=== PATIENT | female | born 1965 | race African-American/Black ===

== ENCOUNTER 2016-10-14 10:38 | Emergency (ER) | payer BC ==
[2016-10-14 10:44] VITALS: BP 156/94; PULSE 75; TEMP 98.1; BMI 29.7
--- NOTE | 2016-10-14 11:18 | PDOC ---
History of Present Illness - General Chief Complaint: Pain Stated Complaint: RT LEG PAIN Time Seen by Provider: 10/14/16 11:10 History Source: Patient Exam Limitations: No Limitations - History of Present Illness Initial Comments: 10/14/16 11:16 50 yr female with c/o right lower leg pain for one week. Pt denies trauma, pt states pain worse with standing and walking. Pt has history of PE in the past, many years ago. Pt is not on any blood thinners.Pt denies chest pain no SOB. Pt also c/o feeling week and nauseas. no abd pain no fever or chills denies urianry complaints. 10/14/16 11:22 Past History - Past Medical History Allergies/Adverse Reactions: Allergies Allergy/AdvReac Type Severity Reaction Status Date / Time No Known Allergies Allergy Verified 10/14/16 10:40 Home Medications: Ambulatory Orders Aspirin [ASA -] 81 mg PO DAILY 04/15/15 Lovastatin 10 mg PO DAILY 04/15/15 Methocarbamol [Robaxin -] 500 mg PO TID PRN #30 tablet 04/15/15 Metoprolol Tartrate 25 mg PO DAILY 04/15/15 Paroxetine HCl [Paxil] 20 mg PO DAILY 04/15/15 Trazodone HCl [Desyrel -] 50 mg PO HS 04/15/15 Valsartan/Hydrochlorothiazide [Valsartan-Hctz 320-25 mg Tab] 1 each PO DAILY Azithromycin [Zithromax Tri-Hero (3 DAYS) -] 500 mg PO DAILY #3 tablet 12/04/15 Prednisone [Deltasone -] 40 mg PO DAILY #8 tablet 12/04/15 Naproxen [Naprosyn -] 500 mg PO BID #14 tablet 10/14/16 Asthma: Yes (MILD ASTHMA) Cardiac Disorders: No CHF: No Diabetes: No GI Disorders: Yes (GERD) Disorders: No HTN: Yes Hypercholesterolemia: Yes Liver Disease: No Psychiatric Problems: Yes (depression/anxiety) Suicide Attempt (Hx): No Thyroid Disease: No - Surgical History Abdominal Surgery: Yes - Immunization History Td Vaccination: Yes Immunization Up to Date: Yes - Psycho/Social/Smoking Cessation Hx Anxiety: Yes Suicidal Ideation: No Smoking Status: Yes Smoking History: Current some day smoker Have you smoked in the past 12 months: Yes Number of Cigarettes Smoked Daily: 7 Information on smoking cessation initiated: No 'Breaking Loose' booklet given: 02/25/12 Hx Alcohol Use: No Drug/Substance Use Hx: No Substance Use Type: None Hx Substance Use Treatment: No *Physical Exam - Vital Signs Last Vital Signs Temp Pulse Resp BP Pulse Ox 98.1 F 75 18 156/94 98 10/14/16 10:40 10/14/16 10:40 10/14/16 10:40 10/14/16 10:40 10/14/16 10:40 - Physical Exam General Appearance: Yes: Nourished HEENT: positive: EOMI, ROS, Normal ENT Inspection, TMs Normal, Pharynx Normal Neck: positive: Supple Respiratory/Chest: positive: Lungs Clear, Normal Breath Sounds Cardiovascular: positive: Regular Rhythm, Regular Rate Gastrointestinal/Abdominal: positive: Normal Bowel Sounds, Soft. negative: Tender Musculoskeletal: positive: Normal Inspection Extremity: positive: Normal Capillary Refill, Normal Inspection, Normal Range of Motion. negative: Tender, Swelling, Calf Tenderness Integumentary: positive: Normal Color, Dry, Warm Neurologic: positive: Fully Oriented, Alert, Normal Mood/Affect, Normal Response , Motor Strength / ED Treatment Course - LABORATORY CBC & Chemistry Diagram: 10/14/16 10:57 10/14/16 10:57 - RADIOLOGY Radiology Studies Ordered: Category Date Time Status DUPLEX VASCUL US-1 LEG [US] Stat Ultrasound 10/14/16 11:15 Ordered Medical Decision Making - Medical Decision Making 10/14/16 11:24 cc: right leg pain for 1 week worse with walking and standing no fever no chills, no abd pain will r/o DVT will check labs toradol for pain 10/14/16 12:36 labs are WNL *DC/Admit/Observation/Transfer Diagnosis at time of Disposition: Leg pain, right - Discharge Dispostion Disposition: HOME Condition at time of disposition: Good - Prescriptions Prescriptions: Naproxen [Naprosyn -] 500 mg PO BID #14 tablet - Patient Instructions Additional Instructions: take naprosyn for pain as directed please follow with your doctor in 2-3 days for follow up please bring copies of the blood work done today and the ultrasound report
[2016-10-14 11:42] LABS: BASOPHIL 0.7 % (0-2.0); EOSINOPHIL 4.2 % (0-4.5); MCH 30.4 pg (25.7-33.7); MCHC 33.2 g/dl (32.0-36.0); MEAN CELL VOLUME 91.8 fl (80-96); MEAN PLT VOLUME 8.6 fl (7.5-11.1); NEUTROPHILS 71.7 % (42.8-82.8); PLATELET COUNT 265 K/MM3 (134-434); RDW 13.6 % (11.6-15.6); WHITE BLOOD COUNT 13.5 K/mm3 (4.0-10.0)
[2016-10-14 11:54] LABS: INR 0.96 (0.82-1.09); PROTHROMBIN TIME (PATIENT) 10.5 SEC (9.98-11.88)
[2016-10-14] MEDS ORDERED: KETOROLAC TROMETHAMINE 60 MG/2 ML VIAL IM ONE (12:01)
[2016-10-14] MEDS ORDERED: KETOROLAC TROMETHAMINE 60 MG/2 ML VIAL ONE (12:03)
[2016-10-14 12:07] LABS: ALBUMIN 3.5 g/dl (3.4-5.0); ALK PHOS 73 U/L (45-117); ANION GAP 9 (8-16); BILIRUBIN,TOTAL 0.2 mg/dL (0.2-1.0); CALCIUM 8.8 mg/dL (8.5-10.1); CO2 26 mmol/L (21-32); CREATININE 0.8 mg/dL (0.55-1.02); GLUCOSE,RANDOM 93 mg/dL (74-106); SGPT/ALT 19 U/L (12-78)
[2016-10-14 12:08] LABS: SGOT/AST 13 U/L (15-37)
[2016-10-14 12:33] LABS: URINE APPEARANCE SLCLOUDY; URINE BILIRUBIN NEGATIVE (NEGATIVE); URINE BLOOD 1+ (NEGATIVE); URINE COLOR AMBER; URINE GLUCOSE (UA) NEGATIVE (NEGATIVE); URINE KETONE NEGATIVE (NEGATIVE); URINE LEUK ESTERASE TRACE (NEGATIVE); URINE NITRITE NEGATIVE (NEGATIVE); URINE PROTEIN NEGATIVE (NEGATIVE); URINE UROBILINOGEN NEGATIVE mg/dL (0.2-1.0)
[2016-10-14 12:36] LABS: URINE MUCUS RARE; URINE RBC 12 /hpf (0-3); URINE WBC 1 /hpf (3-5)
== END 2016-10-14 12:44 | disposition home or self-care (01) ==
LOC: JERFT 10:38
PROC: 3E0233Z Introduction of Anti-inflammatory into Muscle, Percutaneous Approach (ICD-10-PCS; principal; 2016-10-14)
DX: M79.604 Pain in right leg (principal); I10 Essential (primary) hypertension; E78.00 Pure hypercholesterolemia, unspecified; F41.8 Other specified anxiety disorders; Z86.711 Personal history of pulmonary embolism
CPT/HCPCS: 36415; 80053; 81003; 81015; 84703; 85025; 85610; 93971-TC; 99281-25

== ENCOUNTER 2016-10-14 21:53 | Emergency (ER) | payer BC ==
[2016-10-14 22:28] VITALS: BP 151/94; PULSE 66; TEMP 98.9; BMI 31.9
--- NOTE | 2016-10-14 22:45 | PDOC ---
History of Present Illness - History of Present Illness Initial Comments: 10/14/16 23:10 The patient is a 50 year old female, with a significant past medical history of hypertension, hyperlipidemia, anxiety/depression, GERD, asthma, who presents to the emergency department with right sided abdominal pain, nausea, and vomiting since 6PM tonight. She states she was seen in the ED this morning for leg pain. She states she was given a shot for pain and when the pain resolved she was discharged home. She reports going home around 1PM, eating at 4PM, and developing a sudden onset of emesis at 6PM. She reports 2 episodes of nonbilious /nonbloody emesis - mostly the food that she ate. She localizes her pain to the right side of her abdomen and denies radiation of pain. Reports similar pain in the past, but less mild and not after eating. She denies chest pain, shortness of breath, headache and dizziness. She denies fever, chills, diarrhea and constipation. She denies dysuria, frequency, urgency and hematuria. Allergies: NKDA Past surgical history: partial hysterectomy (20 years ago), D&C (+20 years ago) Social history: Pt reports daily tobacco use. Pt denies alcohol use or illicit drug use PCP - Dr. Lexx Alanis <Lynda Reyna - Last Filed: 10/14/16 23:10> <Delon Alcaraz - Last Filed: 10/19/16 07:50> - General Chief Complaint: Pain Stated Complaint: PAIN Time Seen by Provider: 10/14/16 22:44 Past History <Lynda Reyna - Last Filed: 10/14/16 23:10> - Past Medical History Asthma: Yes (MILD ASTHMA) Cardiac Disorders: No CHF: No Diabetes: No GI Disorders: Yes (GERD) Disorders: No HTN: Yes Hypercholesterolemia: Yes Liver Disease: No Psychiatric Problems: Yes (depression/anxiety) Suicide Attempt (Hx): No Thyroid Disease: No - Surgical History Abdominal Surgery: Yes - Immunization History Td Vaccination: Yes Immunization Up to Date: Yes - Psycho/Social/Smoking Cessation Hx Anxiety: Yes Suicidal Ideation: No Smoking Status: Yes Smoking History: Unknown if ever smoked Have you smoked in the past 12 months: Yes Number of Cigarettes Smoked Daily: 7 Information on smoking cessation initiated: No 'Breaking Loose' booklet given: 02/25/12 Hx Alcohol Use: No Drug/Substance Use Hx: No Substance Use Type: None Hx Substance Use Treatment: No <Delon Alcaraz - Last Filed: 10/19/16 07:50> - Past Medical History Allergies/Adverse Reactions: Allergies Allergy/AdvReac Type Severity Reaction Status Date / Time No Known Allergies Allergy Verified 10/14/16 22:26 Home Medications: Ambulatory Orders Aspirin [ASA -] 81 mg PO DAILY 04/15/15 Lovastatin 10 mg PO DAILY 04/15/15 Methocarbamol [Robaxin -] 500 mg PO TID PRN #30 tablet 04/15/15 Metoprolol Tartrate 25 mg PO DAILY 04/15/15 Paroxetine HCl [Paxil] 20 mg PO DAILY 04/15/15 Trazodone HCl [Desyrel -] 50 mg PO HS 04/15/15 Valsartan/Hydrochlorothiazide [Valsartan-Hctz 320-25 mg Tab] 1 each PO DAILY Azithromycin [Zithromax Tri-Hero (3 DAYS) -] 500 mg PO DAILY #3 tablet 12/04/15 Prednisone [Deltasone -] 40 mg PO DAILY #8 tablet 12/04/15 Naproxen [Naprosyn -] 500 mg PO BID #14 tablet 10/14/16 Review of Systems - Review of Systems Able to Perform ROS?: Yes Comments:: 10/14/16 23:11 GENERAL/CONSTITUTIONAL: No fever or chills. No weakness. HEAD, EYES, EARS, NOSE AND THROAT: No change in vision. No ear pain or discharge. No sore throat. CARDIOVASCULAR: No chest pain or shortness of breath. RESPIRATORY: No cough, wheezing, or hemoptysis. GASTROINTESTINAL: (+) right sided abdominal pain, nausea, and vomiting.No diarrhea or constipation. GENITOURINARY: No dysuria, frequency, or change in urination. MUSCULOSKELETAL: No joint or muscle swelling or pain. No neck or back pain. SKIN: No rash NEUROLOGIC: No headache, vertigo, loss of consciousness, or change in strength/ sensation. ENDOCRINE: No increased thirst. No abnormal weight change. HEMATOLOGIC/LYMPHATIC: No anemia, easy bleeding, or history of blood clots. ALLERGIC/IMMUNOLOGIC: No hives or skin allergy. <Lynda Reyna - Last Filed: 10/14/16 23:10> *Physical Exam - Vital Signs Last Vital Signs Temp Pulse Resp BP Pulse Ox 98.9 F 66 14 151/94 99 10/14/16 22:27 10/14/16 22:27 10/14/16 22:27 10/14/16 22:27 10/14/16 22:27 - Physical Exam Comments: 10/14/16 23:11 GENERAL: Awake, alert, and fully oriented, in no acute distress HEAD: No signs of trauma EYES: PERRLA, EOMI, sclera anicteric, conjunctiva clear ENT: Auricles normal inspection, hearing grossly normal, nares patent, oropharynx clear without exudates. Moist mucosa NECK: Normal ROM, supple, no lymphadenopathy, JVD, or masses LUNGS: Breath sounds equal, clear to auscultation bilaterally. No wheezes, and no crackles HEART: Regular rate and rhythm, normal S1 and S2, no murmurs, rubs or gallops ABDOMEN: (+) RUQ tenderness to palpation. Soft, normoactive bowel sounds. No guarding, no rebound. No masses EXTREMITIES: Normal range of motion, no edema. No clubbing or cyanosis. No cords, erythema, or tenderness NEUROLOGICAL: Normal speech, cranial nerves intact, negative pronator drift, 5/ 5 strength in all 4 extremities, normal sensation to light touch in all 4 extremities, normal cerebellar exam, normal gait, normal reflexes and tone SKIN: Warm, Dry, normal turgor, no rashes or lesions noted. <Lynda Reyna - Last Filed: 10/14/16 23:10> - Vital Signs Last Vital Signs Temp Pulse Resp BP Pulse Ox 98.9 F 66 14 151/94 99 10/14/16 22:27 10/14/16 22:27 10/14/16 22:27 10/14/16 22:27 10/14/16 22:27 <Delon Alcaraz - Last Filed: 10/19/16 07:50> ED Treatment Course - LABORATORY CBC & Chemistry Diagram: 10/15/16 00:00 10/15/16 00:00 <Delon Alcaraz - Last Filed: 10/19/16 07:50> Medical Decision Making - Medical Decision Making 10/14/16 23:32 50 year old female, with a significant past medical history of hypertension, hyperlipidemia, anxiety/depression, GERD, asthma, who presents to the emergency department with right sided abdominal pain, nausea, and vomiting since 6PM tonight. Exam with right upper quadrant tenderness to palpation. Differential includes cholecystitis versus pancreatitis versus gastritis. -labs -UA -US -pepcid/zofran -reassess 10/19/16 07:50 <Delon Alcaraz - Last Filed: 10/19/16 07:50> *DC/Admit/Observation/Transfer - Attestations Scribe Attestion: 10/14/16 23:11 Documentation prepared by Lynda Reyna, acting as emergency medical dispatcher for Delon Alcaraz MD <Lynda Reyna - Last Filed: 10/14/16 23:10> <Delon Alcaraz - Last Filed: 10/19/16 07:50> Diagnosis at time of Disposition: Abdominal pain - Discharge Dispostion Disposition: HOME Condition at time of disposition: Stable - Referrals Referrals: Lexx Alanis MD [Primary Care Provider] -
[2016-10-14] MEDS ORDERED: ONDANSETRON 4 MG/2 ML VIAL IVPUSH ONE (23:10)
[2016-10-14] MEDS ORDERED: FAMOTIDINE 20 MG/50 ML IVPB 50 ML IVPB ONE ×2 (23:11→23:54)
[2016-10-14] MEDS ORDERED: ONDANSETRON 4 MG/2 ML VIAL ONE (23:54)
[2016-10-15 00:22] LABS: BASOPHIL 0.6 % (0-2.0); EOSINOPHIL 2.9 % (0-4.5); MCH 30.2 pg (25.7-33.7); MEAN CELL VOLUME 91.5 fl (80-96); MEAN PLT VOLUME 8.4 fl (7.5-11.1); NEUTROPHILS 73.2 % (42.8-82.8); PLATELET COUNT 260 K/MM3 (134-434); RDW 13.3 % (11.6-15.6); WHITE BLOOD COUNT 12.4 K/mm3 (4.0-10.0)
[2016-10-15 00:45] LABS: ALBUMIN 3.6 g/dl (3.4-5.0); ANION GAP 7 (8-16); CALCIUM 8.8 mg/dL (8.5-10.1); CO2 29 mmol/L (21-32); CREATININE 0.8 mg/dL (0.55-1.02); GLUCOSE,RANDOM 102 mg/dL (74-106); MAGNESIUM 2.3 mg/dL (1.8-2.4); SGOT/AST 9 U/L (15-37); SGPT/ALT 20 U/L (12-78)
[2016-10-15 00:49] LABS: ALK PHOS 74 U/L (45-117); BILIRUBIN,TOTAL 0.3 mg/dL (0.2-1.0); TROPONIN I < 0.02 ng/ml (0.00-0.05)
== END 2016-10-15 02:38 | disposition home or self-care (01) ==
LOC: JER 21:53
PROC: 3E033GC Introduction of Other Therapeutic Substance into Peripheral Vein, Percutaneous Approach (ICD-10-PCS; principal; 2016-10-14)
PROC: 3E033GC Introduction of Other Therapeutic Substance into Peripheral Vein, Percutaneous Approach (ICD-10-PCS; 2016-10-14)
DX: R10.84 Generalized abdominal pain (principal); K21.9 Gastro-esophageal reflux disease without esophagitis; I10 Essential (primary) hypertension; E78.00 Pure hypercholesterolemia, unspecified; F41.8 Other specified anxiety disorders
CPT/HCPCS: 36415; 76700-TC; 80053; 83690; 83735; 84484; 85025; 99281-25

== ENCOUNTER 2017-04-28 11:40 | Emergency (ER) | payer BC, OTHER ==
[2017-04-28 12:03] VITALS: BP 118/67; PULSE 67; TEMP 98.8; BMI 32.1
[2017-04-28] MEDS ORDERED: KETOROLAC TROMETHAMINE 60 MG/2 ML VIAL IM ONE (12:43)
--- NOTE | 2017-04-28 12:44 | PDOC ---
History of Present Illness - General Chief Complaint: Pain, Acute Stated Complaint: RT SHOULDER PAIN Time Seen by Provider: 04/28/17 12:24 History Source: Patient Exam Limitations: No Limitations - History of Present Illness Initial Comments: 04/28/17 13:49 Patient is a 51-year-old female who presents with 3 days of right shoulder pain. Patient is right-hand dominant. She states that she woke up this morning with shooting pain. She rates the pain a 10 on a 10. She states that it took her a long time to get dressed this morning. She states that she was unable to take her clothes off her exam now. Denies fevers, chills, numbness and tingling in the extremity, trauma to the arm. Past History - Travel Traveled outside of the country in the last 30 days: No Close contact w/someone who was outside of country & ill: No - Past Medical History Allergies/Adverse Reactions: Allergies Allergy/AdvReac Type Severity Reaction Status Date / Time No Known Allergies Allergy Verified 04/28/17 11:51 Home Medications: Ambulatory Orders Aspirin [ASA -] 81 mg PO DAILY 04/15/15 Lovastatin 10 mg PO DAILY 04/15/15 Methocarbamol [Robaxin -] 500 mg PO TID PRN #30 tablet 04/15/15 Metoprolol Tartrate 25 mg PO DAILY 04/15/15 Paroxetine HCl [Paxil] 20 mg PO DAILY 04/15/15 Valsartan/Hydrochlorothiazide [Valsartan-Hctz 320-25 mg Tab] 1 each PO DAILY traZODone HCL [Desyrel -] 50 mg PO HS 04/15/15 Azithromycin [Zithromax Tri-Hero (3 DAYS) -] 500 mg PO DAILY #3 tablet 12/04/15 predniSONE [Deltasone -] 40 mg PO DAILY #8 tablet 12/04/15 Naproxen [Naprosyn -] 500 mg PO BID #14 tablet 10/14/16 predniSONE [Deltasone -] 40 mg PO DAILY #8 tablet 04/28/17 Asthma: Yes (MILD ASTHMA) Cardiac Disorders: No COPD: No CHF: No DVT: No Diabetes: No GI Disorders: Yes (GERD) Disorders: No HTN: Yes Hypercholesterolemia: Yes Liver Disease: No Psychiatric Problems: Yes (depression/anxiety) Thyroid Disease: No - Surgical History Abdominal Surgery: Yes - Immunization History Td Vaccination: Yes Immunization Up to Date: Yes - Suicide/Smoking/Psychosocial Hx Smoking Status: Yes Smoking History: Unknown if ever smoked Have you smoked in the past 12 months: Yes Number of Cigarettes Smoked Daily: 7 Information on smoking cessation initiated: No 'Breaking Loose' booklet given: 02/25/12 Hx Alcohol Use: No Drug/Substance Use Hx: No Substance Use Type: None Hx Substance Use Treatment: No Review of Systems - Review of Systems Able to Perform ROS?: Yes Comments:: 04/28/17 13:51 CONSTITUTIONAL: Absent: fever, chills, diaphoresis, generalized weakness, malaise, loss of appetite MUSCULOSKELETAL: R shoulder pain x2 Absent: myalgia, arthralgia, joint swelling SKIN: Absent: rash, itching, pallor NEUROLOGIC: Absent: headache, focal weakness or paresthesias, dizziness, unsteady gait, seizure, mental status changes, bladder or bowel incontinence PSYCHIATRIC: Absent: anxiety, depression, suicidal or homicidal ideation, hallucinations. Is the patient limited Malaysian proficient: No *Physical Exam - Vital Signs Last Vital Signs Temp Pulse Resp BP Pulse Ox 98.8 F 67 16 118/67 98 04/28/17 11:51 04/28/17 11:51 04/28/17 11:51 04/28/17 11:51 04/28/17 11:51 - Physical Exam Comments: 04/28/17 13:51 GENERAL: Well developed, well nourished. Awake and alert. No acute distress. NECK: Supple. Full ROM. No JVD. Carotid pulses 2+ and symmetric, without bruits. No thyromegaly. No lymphadenopathy. MUSCULOSKELETAL Decreased ROM of the R shoulder in all directions. TTP of the R humeral head. Normal range of motion at all other joints. No bony deformities or tenderness. No CVA tenderness. EXTREMITIES: No cyanosis. No clubbing. No edema. No calf tenderness. SKIN: Warm and dry. Normal capillary refill. No rashes. No jaundice. NEUROLOGICAL: Alert, awake, appropriate. Cranial nerves 2-12 intact. No deficits to light touch and temperature in face, upper extremities and lower extremities. No motor deficits in the in face, upper extremities and lower extremities. Normoreflexic in the upper and lower extremities. Normal speech. Toes are down- going bilaterally. Gait is normal without ataxia. PSYCHIATRIC: Cooperative. Good eye contact. Appropriate mood and affect. Medical Decision Making - Medical Decision Making 04/28/17 13:59 Patient is a 51-year-old female who presents with right shoulder pain. Patient is right-hand dominant. Decreased ROM of R shoulder on exam. No trauma to suggest reason for shoulder pain. X-ray obtained. X-ray read shows calcification of a ligament in the right shoulder. Most likely the cause of her pain. We'll discharge home with steroids and or so follow-up at this time. Patient states she has an appointment on Thursday at [facility] for orthopedics. Patient reports mild relief of her pain with Toradol. Return precautions given. Patient understands all discharge instructions and all questions were answered. *DC/Admit/Observation/Transfer Diagnosis at time of Disposition: Shoulder pain, right Qualifiers: Chronicity: acute Qualified Code(s): M25.511 - Pain in right shoulder - Discharge Dispostion Disposition: HOME Condition at time of disposition: Stable Admit: No - Prescriptions Prescriptions: predniSONE [Deltasone -] 40 mg PO DAILY #8 tablet - Referrals Referrals: Lexx Alanis MD [Primary Care Provider] - - Patient Instructions Printed Discharge Instructions: DI for Shoulder Pain Additional Instructions: Your x-ray today showed calcifications in your ligament. This is most likely what is causing her pain. Please take the steroids as prescribed for the next 4 days to help with the swelling. Please do gentle range of motion exercises to help the shoulder mobile. You may use heating pads to the area to help with the pain as well. Please keep your appointment with orthopedics on Thursday. Return to the emergency department if you have worsening pain, shortness of breath, cannot move the arm, or have any changes in her symptoms. - Post Discharge Activity
[2017-04-28] MEDS ORDERED: KETOROLAC TROMETHAMINE 60 MG/2 ML VIAL ONE (12:45)
== END 2017-04-28 13:58 | disposition home or self-care (01) ==
LOC: JERFT 11:40
PROC: 3E0233Z Introduction of Anti-inflammatory into Muscle, Percutaneous Approach (ICD-10-PCS; principal; 2017-04-28)
DX: M25.511 Pain in right shoulder (principal); K21.9 Gastro-esophageal reflux disease without esophagitis; I10 Essential (primary) hypertension; E78.00 Pure hypercholesterolemia, unspecified; F41.8 Other specified anxiety disorders; J45.909 Unspecified asthma, uncomplicated
CPT/HCPCS: 73030-TC-RT-FY; 99281-25

== ENCOUNTER 2018-09-08 12:04 | Emergency (ER) | payer OTHER ==
[2018-09-08 12:10] VITALS: BP 155/88; PULSE 65; TEMP 98.2; BMI 30.4
== END 2018-09-08 13:18 | disposition left against medical advice (07) ==
LOC: JER 12:04
DX: Z53.21 Procedure and treatment not carried out due to patient leaving prior to being seen by health care provider (principal)
CPT/HCPCS: 99281-25

== ENCOUNTER 2020-05-24 07:49 | Emergency (ER) | payer OTHER ==
[2020-05-24 08:06] VITALS: BP 153/95; PULSE 73; TEMP 98.7; BMI 31.9
[2020-05-24] MEDS ORDERED: NAPROXEN 500 MG TABLET PO ONE (08:52)
[2020-05-24] MEDS ORDERED: NAPROXEN 500 MG TABLET ONE (08:52)
== END 2020-05-24 09:20 | disposition home or self-care (01) ==
LOC: JERFT 07:49 → JER 07:49 → JERFT 09:20
DX: S83.92XA Sprain of unspecified site of left knee, initial encounter (principal)
CPT/HCPCS: 73562-TC-RT-FY; 99284-25

== ENCOUNTER 2022-02-26 09:09 | Emergency (ER) | payer OTHER ==
[2022-02-26 09:22] VITALS: BP 191/90; PULSE 85; RESP 17; TEMP 98; BMI 31.9
[2022-02-26] MEDS ORDERED: diazePAM 5 MG TABLET PO ONE (10:10)
[2022-02-26] MEDS ORDERED: KETOROLAC TROMETHAMINE 30 MG/1 ML VIAL IVPUSH ONE (10:10)
[2022-02-26] MEDS ORDERED: KETOROLAC TROMETHAMINE 30 MG/1 ML VIAL ONE (10:35)
[2022-02-26] MEDS ORDERED: diazePAM 5 MG TABLET ONE (10:35)
[2022-02-26 11:31] LABS: BASO % 0.5 % (0-2.0); EOS % 0.8 % (0-4.5); HEMATOCRIT 42.8 % (32.4-45.2); HEMOGLOBIN 14.4 GM/dL (10.7-15.3); LYMPH % 21.6 % (8-40); MCH 30.7 pg (25.7-33.7); MCHC 33.7 g/dl (32.0-36.0); MEAN CELL VOLUME 90.9 fl (80-96); MEAN PLT VOLUME 8.8 fl (7.5-11.1); MONO % 8.4 % (3.8-10.2); NEUT % 68.7 % (42.8-82.8); PLATELET COUNT 352 10^3/uL (134-434); RDW 14.1 % (11.6-15.6); WHITE BLOOD COUNT 13.5 K/mm3 (4.0-10.0)
[2022-02-26 12:00] LABS: CALCIUM 9.7 mg/dL (8.5-10.1); INR 0.96 (0.83-1.09)
[2022-02-26 12:01] LABS: ALBUMIN 3.5 g/dl (3.4-5.0)
[2022-02-26 12:03] LABS: CREATININE 0.9 mg/dL (0.55-1.3)
[2022-02-26 12:05] LABS: TOT PROT 7.8 g/dl (6.4-8.2)
== END 2022-02-26 12:52 | disposition home or self-care (01) ==
LOC: JER 09:09 → JERFT 09:09
PROC: 3E033GC Introduction of Other Therapeutic Substance into Peripheral Vein, Percutaneous Approach (ICD-10-PCS; principal; 2022-02-26)
DX: M54.2 Cervicalgia (principal)
CPT/HCPCS: 36415; 71046-TC-FY; 80053; 84484; 85025; 85610; 93005; 93010; 99285-25

== ENCOUNTER 2024-08-29 09:56 | Emergency (ER) | payer OTHER ==
[2024-08-29 10:12] VITALS: BP 168/88; PULSE 73; RESP 18; TEMP 98.6; BMI 30.9
[2024-08-29] MEDS ORDERED: predniSONE 20 MG TABLET (UD) ONE (10:55)
[2024-08-29] MEDS ORDERED: LIDOCAINE 5% TOPICAL PATCH ONE (10:56)
[2024-08-29] MEDS ORDERED: KETOROLAC TROMETHAMINE 30 MG/1 ML VIAL ONE (10:56)
[2024-08-29] MEDS: KETOROLAC TROMETHAMINE 30 MG/1 ML VIAL IM ONE (11:04)
[2024-08-29] MEDS: LIDOCAINE 5% TOPICAL PATCH TP ONE (11:04)
[2024-08-29] MEDS: predniSONE 20 MG TABLET (UD) PO ONE (11:05)
[2024-08-29] MEDS ORDERED: LIDOCAINE PATCH REMOVAL MC ONE (22:00)
== END 2024-08-29 11:33 | disposition home or self-care (01) ==
LOC: JER 09:56
PROC: 3E0233Z Introduction of Anti-inflammatory into Muscle, Percutaneous Approach (ICD-10-PCS; principal; 2024-08-29)
DX: G56.02 Carpal tunnel syndrome, left upper limb (principal); R20.0 Anesthesia of skin; M79.89 Other specified soft tissue disorders; M79.642 Pain in left hand; M25.532 Pain in left wrist
CPT/HCPCS: 99284-25